=== PATIENT | male | born 1950 | race Caucasian/White ===

== ENCOUNTER → 2017-08-17 | Outpatient (CLI) | payer OTHER ==
--- NOTE | 2017-08-18 05:43 | PAP/PSG TECHNICIAN REPORT ---
[facility] Community Support Professional Polysomnogram Report Study name: None Report date: 08/18/2017 Study date: 08/17/2017 Referring Physician: Gage Snider M.D. Name: SHAKIRA MARTÍN Pang Interpreting Physician: Gage Snider M.D. Date of : 1950 Community Support Professional: Anahy Wheeler RPSGT. Sex: Male Age: 67 Study Type: PSG PAP Weight: 238 lbs 18.5 in Height: 67 years, Height 5' 9" Neck Circum: BMI: 35.14 Medications: ALLOPURINOL 100 MG, BACTRIM DS 800-160 MG, CARDURA 4 MG, HYDROCHOLROTHIAZIDE 25 MG, MULTI COMPLETE/IRON, POTASSIUM CITRATE 10 MEQ Patient History 67 yr-old male here for a CPAP update and O2 saturation check. He is still experiencing daytime sleepiness. He is back to assess his nocturnal O2 saturation to see if he will need to use O2 with his CPAP machine. His [place] scale is 18. The test was started on 8 CMH2O and room air. ETCO2 testing was not utilized during this study. Room 1 Parameters Monitored NPSG: E1-M2, E2-M1, Fp1-M2, Fp2-M1, F3-M2, F4-M2, F4-M1, C3-M2, C4-M2, C4-M1, O1-M2, O2-M2, O2-M1, T3-M2, T4-M1, P3-M2, P4-M1, CHIN1, CHIN2, HR, EKG, Legs, PFLOW, SNOR, FLOW, CFLOW, Tidal Volume, THOR, ABDO, SpO2, PLTH, CPRESS, ETCO2 Wave, ETCO2, pH Sleep Architecture Sleep Stages Time at Lights Off 8:32:44 PM STAGES Time (min.) TST (%) Time at Lights On 4:47:44 AM Wake 112.5 -- Total Recording Time (TRT) 495.00 min. N1 96.0 25 Total Sleep Period (TSP) 451.5 min. N2 203.0 53 Total Sleep Time (TST) 382.5min. N3 32.0 8 Awake Time 112.5 min. REM 51.5 13 Wake after Sleep Onset 91.5 min. Sleep Efficiency (SE) 77 % Sleep Onset Latency (RAÚL) 21.0 min. Number of Stage 1 Shifts None Awakenings 44 Stage Changes 232 Number of REM periods 8 REM 51.5 13 REM Latency 165.0 min. NREM 331.0 87 Body Position Analysis Supine Right Left Side Prone Vertical Total Sleep Time (min.) 274.6 84.5 92.1 176.63 0.0 0.0 Total Sleep Time (%) 54% 22% 24% 46 0% N/A% Total Sleep Time REM (min.) 10.5 23.5 17.5 None 0.0 0.0 Total Sleep Time NREM (min.) 195.4 61.0 74.6 None 0.0 0.0 Intermittent Wake (min.) 68.7 36.2 7.6 None 0.0 0.0 Total Sleep Period (%) 54% None None None None None Arousals Myoclonus (PLM) * Events Count Index Events Count Index Spontaneous 64 10 Events Awake (PLMW) 200 106.7 Respiratory 10 1.6 Events Asleep w/ Arousal (PLMA) 83 13.0 PLM 82 13 Events Asleep w/o Arousal (PLMS) 202 31.7 Snoring 11 2 Total Asleep 285 44.7 Total 167 26 Total 485 59 Respiratory Analysis * CA OA MA CH H RERA Total Count 0 1 0 0 35 0 36 Index 0.0 0.2 0.0 0 5.5 0 5.6 Mean Duration 0.0 10.2 0.0 0.00 14.4 0.0 14.3 Longest Duration 0.0 10.2 0.0 0.00 0.0 0.0 17.7 Respiratory Event Summary Total Supine ~Supine Right Left Prone REM NREM Apneas Count 1 1 0 0 0 N/A 0 1 Index 0.2 0 0 0.0 0.0 N/A 0 0 Hypopneas (4% Desat) Count 35 32 3 2 1 N/A 3 32 Index 5.5 9.3 1 1.4 0.7 N/A 3.5 5.8 Apneas & All Hypopneas Count 36 33 3 2 1 N/A 3 33 Index 5.6 10 1 1 1 N/A 3.5 6.0 Respiratory Events (Wheat Shipper+All Hyp+RERA) Count 36 33 3 2 1 N/A 3 33 Index 5.6 10 1 1.4 0.7 N/A 3.5 6.0 Respiratory Related Arousal Count 10 33 0 0 0 N/A 0 10 Index 1.6 3 0 0 0 N/A 0 2 Snoring Analysis Supine Right Left Prone REM NREM Total Snore duration 3.3 min Snores count 57 4 17 N/A 4 74 78 Snore mean duration 2.5 Sec Snores index 17 3 11 N/A 4.7 13.4 12.2 TST with snoring (%) 0.9% Desaturation Event Summary: Minimum %SpO2 Event Count Mean/Min/Max Duration(sec.) Desaturation Index % Time In Bed > 90 85 24.3 / 7.5 / 60.0 14.1 73.6 86 - 90 8 12.4 / 9.0 / 14.8 3.7 26.4 81 - 85 0 N/A 0.0 0.0 76 - 80 0 N/A 0.0 0.0 71 - 75 0 N/A 0.0 0.0 66 - 70 0 N/A 0.0 0.0 61 - 65 0 N/A 0.0 0.0 56 - 60 0 N/A 0.0 0.0 51 - 55 0 N/A 0.0 0.0 < 50 0 N/A 0.0 0.0 Total REM NREM Awake <50% 0.0 min. 0.0 min. 0.0 min. 0.0 min. 51 - 60% 0.0 min. 0.0 min. 0.0 min. 0.0 min. 61 - 70% 0.0 min. 0.0 min. 0.0 min. 0.0 min. 71 - 80% 0.0 min. 0.0 min. 0.0 min. 0.0 min. 81 - 90% 129.6 min. 12.9 min. 99.7 min. 17.0 min. 91 - 100% 360.9 min. 38.6 min. 230.6 min. 91.7 min. Average 91 91 91 92 Minimum SpO2 85 86 87 85 Desaturation Event Index 10.4 5.8 11.1 11.7 # Desat. Events below 89% 27 2 22 3 Time(%) with Saturation below 89% 1.5 0.7 0.6 0.2 Time(min.) with Saturation below 89% 7.3 3.4 3.1 0.8 Time (mins) REM (mins) NREM (mins) % of TST SpO2 Below 90% 63 4 N59 8.0 SpO2 Below 88% 6 0 0 0 Heart Rate Analysis Min (bpm) Max (bpm) Average (bpm) Awake 46 105 72 NREM 58 88 70 REM 57 79 67 Overall 57 88 69 Supplemental O2 Values Minimum O2 level: None Value Start Time End Time Community Support Professional Comments Mr. Nava slept in the right, left, and supine positions. No cardiac arrhythmias were noted. PLMs were noted. Leg movements that caused many arousals were noted. No bruxism noted. CPAP was initiated at +8 CMH2O and up-titrated to a level of +10 CMH2O, Cflex 2 which nearly eliminated all respiratory events and snoring. A Gates FX nasal pillows mask from [employer] was used during titration. He did not wake up to use the restroom during the night. He woke up around 4:30 and then stated that he was done sleeping around 4:45.. Mr. Nava stated that he seemed more restless than usual. The final report will be interpreted and signed by a sleep physician. The completed physician report will then be placed in the patient medical record. CPAP REPORT Therapy Detail Time / Page # Comment CPAP 8 cm H2O Nasal Pillow Mask Flex Pressure Relief Humidifier on 8:30:57 PM / pg. 55 STARTING AT 8 CMH2O PER H&P CPAP 9 cm H2O Nasal Pillow Mask Flex Pressure Relief Humidifier on 11:04:54 PM / pg. 363 INCREASED FOR HYPOPNEAS CPAP 10 cm H2O Nasal Pillow Mask Flex Pressure Relief Humidifier on 1:05:31 AM / pg. 604 INCREASED FOR MORE HYPOPNEAS Therapy Event: Therapy (cm H20) 8 9 10 Total Time at Pressure (min.) 152.2 120.6 222.2 TST at Pressure (min.) 113.7 84.1 184.7 # Periods 1 1 1 Sleep Onset (min.) 21.0 0.0 0.0 REM Onset (min.) N/A 33.8 60.2 Sleep Efficiency % 74 69 83 Wakefulness (%) 25.3 30.3 16.9 Wakefulness (min.) 38.5 36.5 37.5 NREM 1 (%) 21.0 22.8 16.4 NREM 1 (min.) 32.0 27.5 36.5 NREM 2 (%) 32.6 38.2 48.2 NREM 2 (min.) 49.7 46.1 107.2 NREM 3 (%) 21.0 0.0 0.0 NREM 3 (min.) 32.0 0.0 0.0 REM (%) 0.0 8.7 18.5 REM (min.) 0.0 10.5 41.0 # Arousals 56 49 62 Arousal Index 29.6 34.9 20.1 # Snore 9 9 60 Snore Index 4.8 6.4 19.5 AHI 10.0 6.4 2.6 AHI Supine 23.4 8.4 3.6 AHI Non-Supine 0.0 2.2 1.4 NREM AHI 10.0 6.5 2.5 REM AHI N/A 5.7 2.9 RDI 10.0 6.4 2.6 # Obstructive 1 0 0 # Central Ap 0 0 0 # Mixed 0 0 0 # Hypopneas 18 9 8 RERAS 0 0 0 Total Respiratory Events 19 9 8 Time Below SpO2 89.00% (min.) 2.1 4.3 0.1 Mean NREM SpO2 (%) 91 91 91 Mean REM SpO2 (%) N/A 89 92 Mean Sleep SpO2 (%) 91 91 92 Min NREM SpO2 (%) 87 88 89 Min REM SpO2 (%) N/A 86 88 Position Supine (min.) 48.8 56.9 100.2 Position Non-supine (min.) 64.9 27.2 84.5 LM Index Sleep 50.1 62.1 33.5 LM Index NREM 50.1 69.3 40.1 LM Index REM N/A 11.4 10.2 Mean Heart Rate (bpm) 73 70 67 Min Heart Rate (bpm) 65 63 57
--- NOTE | 2017-08-19 07:59 | POLYSOMNOGRAPH REPORT ---
CLINICAL DATA: A 67-year-old male with BMI of 35.14 referred by Genevieve Merrill and myself for reevaluation of sleep apnea, CPAP, and need for possible oxygen at night. SLEEP ARCHITECTURE: Total sleep period was 451.5 minutes. Total sleep time was 382.5 minutes divided between 331 minutes of non-REM sleep and 51.5 minutes of REM sleep. Sleep onset latency was 21 minutes. REM latency was 165 minutes. Sleep efficiency was 77%. Wake after sleep onset was 91.5 minutes. Sleep consisted of stage N1 25%, stage N2 53%, stage N3 8%, and REM 13%. AROUSAL DATA: 167 arousals were recorded for an index of 26 per hour. PLM DATA: 285 limb movements during sleep were noted for an index of 44.7 per hour with arousal index of 13 per hour. RESPIRATORY DATA: The AHI was 5.6. There was 1 obstructive apneic episode, 10.2 seconds in duration. There were 35 hypopneic episodes with a mean duration of 14 seconds. OXIMETRY DATA: No significant hypoxemia was seen. Oxygen leda was 86% during REM. Mean saturation was 91%. Time below 88% was 6 minutes. EKG: Heart rates ranged from 58 to 88 beats per minute. No arrhythmias were noted. CONTACT ASSEMBLER'S COMMENTS AND TREATMENT SUMMARY: The patient slept in the right, left, and supine position. There were frequent leg movements that caused arousals throughout the night. CPAP was started at 8 cm of water pressure and was titrated up to 10 cm of water pressure, C-Flex setting 2 using a Gates FX nasal mask from [employer]. At his final pressure setting, he slept for 184.7 minutes with an AHI of 2.6 and with resolution of his nocturnal hypoxemia. IMPRESSION: 1. Obstructive sleep apnea corrected with CPAP 10 cm of water pressure, C-Flex setting 2 with the above-noted interface. The patient does not need supplemental oxygen. 2. [id number] PLMD causing arousals. RECOMMENDATIONS: The patient's CPAP should be increased to 10 cm of water pressure, C-Flex setting 2. Treatment or workup for PLMD may be of benefit. Clinical correlation is needed. [facility]
== END | disposition home or self-care (01) ==
LOC: C.NEUR 20:00
PROVIDERS: ATTEND Internal Medicine Pulmonary Disease
DX: R06.00 Dyspnea, unspecified (principal); R53.83 Other fatigue; G47.00 Insomnia, unspecified; R00.2 Palpitations; G47.33 Obstructive sleep apnea (adult) (pediatric)

== ENCOUNTER → 2017-08-23 | Outpatient (CLI) | payer OTHER ==
[~2017-08-23] VITALS: Ht 177.8 cm; Wt 108.2 kg
[2017-08-23 13:34] VITALS: BP 137/96; PULSE 96; Ht 177.8 cm; Wt 108.2 kg
== END | disposition home or self-care (01) ==
LOC: C.NEUR 12:40
PROVIDERS: ATTEND Internal Medicine Pulmonary Disease
DX: G47.33 Obstructive sleep apnea (adult) (pediatric) (principal); R53.83 Other fatigue; G47.61 Periodic limb movement disorder